=== PATIENT | male | born 1950 | race Caucasian/White ===

== ENCOUNTER 2018-12-01 19:10 | Emergency (ER) | payer OTHER ==
[2018-12-01 19:23] VITALS: BP 127/77; PULSE 82; TEMP 98; BMI 30.9
--- NOTE | 2018-12-01 20:26 | PDOC ---
Documentation entered by Lamont Umanzor SCRIBE, acting as scribe for Perico Coffey MD. Perico Coffey MD: This documentation has been prepared by the Erna briggs Xhesika, SCRIBE, under my direction and personally reviewed by me in its entirety. I confirm that the documentation accurately reflects all work, treatment, procedures, and medical decision making performed by me. History of Present Illness - General Chief Complaint: Pain Stated Complaint: RT HAND PAIN/SWELLING History Source: Patient Exam Limitations: No Limitations - History of Present Illness Initial Comments: 12/01/18 19:31 The patient is a 67 year old male with a significant past medical history of HTN , DM, elevated cholesterol, and chronic constipation (takes Miralax) who presents to the ED with sudden onset of R hand pain and swelling. Patient notes he has been doing recent work/construction around his house that involves his hands. Patient notes his pain has been constant and intermittently radiates up to his forearm. Pt reports he was told by his PCP that he had a fatty liver, and when he saw Dr. Roberson for a routine colonoscopy 1 week ago he had blood work done. Pt is R hand dominant. The patient denies chest pain, shortness of breath, headache and dizziness. Denies fever, chills, cough, nausea, vomiting, diarrhea. Denies dysuria, frequency, urgency and hematuria. Allergies: NKDA Past surgical history: hernia repair, rotated cuff repair. Social history: Social alcohol use. Denies tobacco use. PCP: Dr. Mohamud GI: Dr. Roberson 12/01/18 21:04 Alert and oriented well-developed well-nourished no acute distress cheerful and cooperative Afebrile, vital signs normal HEENT clear Neck supple without bruit mass or nodes Chest clear CV regular without murmur rub or gallop Abdomen benign Extremities: There is mild edema of the right hand, no warmth or erythema. There is tenderness over the dorsum of the wrist, especially the ulnar extensor tendons, and less so the extensor pollicis longus. There is no deformity. Pulses are full. No distal sensory deficits. There is no swelling, edema, pain or tenderness in the forearm, elbow, upper arm, axilla, or shoulder. No axillary or epitrochlear nodes palpable X-ray: Negative Impression: Tendinitis, secondary to overuse. 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 There is no sign of fracture on x-ray, although there is mild to moderate DJD. There is no sign of DVT, and no risk factors Plan: Wrist immobilized in a cock-up splint. Ice, elevation, and Tylenol, with occasional Motrin if the pain becomes worse. Since he is on baby aspirin, overuse of Motrin was discouraged. Referred to orthopedist for follow-up if there is no improvement in 1 week. If symptoms worsen, return to ER for recheck. Fully ambulatory and in no significant pain or other distress at discharge with family to follow-up as directed Past History - Past Medical History Allergies/Adverse Reactions: Allergies Allergy/AdvReac Type Severity Reaction Status Date / Time No Known Allergies Allergy Verified 08/22/11 20:03 Home Medications: Ambulatory Orders Atorvastatin Calcium [Lipitor] 10 mg PO DAILY 08/22/11 Toprol XL 25 mg PO 08/22/11 Aspirin [ASA -] 81 mg PO DAILY 11/21/16 Lisinopril 5 mg PO DAILY 11/21/16 Tamsulosin HCl 0.4 mg PO DAILY 11/21/16 metFORMIN HCL [Metformin HCl ER] 500 mg PO DAILY 11/21/16 COPD: No Diabetes: Yes HTN: Yes Hypercholesterolemia: Yes - Surgical History Abdominal Surgery: Yes (umbilical hernia repair) - Psycho Social/Smoking Cessation Hx Smoking Status: No Smoking History: Never smoked Years of Tobacco Use: 0 Number of Cigarettes Smoked Daily: 0 Review of Systems - Review of Systems Able to Perform ROS?: Yes Comments:: 12/01/18 19:40 GENERAL/CONSTITUTIONAL: No fever or chills. No weakness. HEAD, EYES, EARS, NOSE AND THROAT: No change in vision. No ear pain or discharge. No sore throat. CARDIOVASCULAR: No chest pain or shortness of breath. RESPIRATORY: No cough, wheezing, or hemoptysis. GASTROINTESTINAL: No nausea, vomiting, diarrhea or constipation. GENITOURINARY: No dysuria, frequency, or change in urination. MUSCULOSKELETAL:+ R hand pain and swelling. No neck or back pain. SKIN: No rash NEUROLOGIC: No headache, vertigo, loss of consciousness, or change in strength/ sensation. ENDOCRINE: No increased thirst. No abnormal weight change. HEMATOLOGIC/LYMPHATIC: No anemia, easy bleeding, or history of blood clots. ALLERGIC/IMMUNOLOGIC: No hives or skin allergy. *Physical Exam - Vital Signs Last Vital Signs Temp Pulse Resp BP Pulse Ox 98 F 82 18 127/77 99 12/01/18 19:13 12/01/18 19:13 12/01/18 19:13 12/01/18 19:13 12/01/18 19:13 ED Treatment Course - RADIOLOGY Radiology Studies Ordered: Category Date Time Status WRIST- RIGHT [RAD] Stat Radiology 12/01/18 19:29 Taken Discharge - Discharge Information Problems reviewed: Yes Clinical Impression/Diagnosis: Tendinitis of right wrist Condition: Improved Disposition: HOME - Admission No - Follow up/Referral Referrals: Susana Mohamud MD [Primary Care Provider] - Harvey Mena MD [Staff Physician] - 1 week - Patient Discharge Instructions Patient Printed Discharge Instructions: DI for Tendinitis Additional Instructions: Rest, intermittent ice, elevate, Tylenol as needed. Use splint and sling as directed to keep the wrist immobilized and elevated. If swelling and redness worsen, return immediately. Otherwise follow-up with orthopedic physician assistant in 1 week. Further treatment may be needed. - Post Discharge Activity
== END 2018-12-01 20:26 | disposition home or self-care (01) ==
LOC: FER 19:10
PROC: 2W3CX1Z Immobilization of Right Lower Arm using Splint (ICD-10-PCS; principal; 2018-12-01)
DX: M77.9 Enthesopathy, unspecified (principal); I10 Essential (primary) hypertension; E11.9 Type 2 diabetes mellitus without complications; E78.00 Pure hypercholesterolemia, unspecified; K59.00 Constipation, unspecified; Z79.82 Long term (current) use of aspirin
CPT/HCPCS: 73110-TC-RT-FY; 99282-25

== ENCOUNTER 2022-04-07 15:14 | Emergency (ER) | payer OTHER ==
[2022-04-07 15:34] VITALS: BP 149/95; PULSE 74; RESP 16; TEMP 99; BMI 33.0
== END 2022-04-07 16:26 | disposition home or self-care (01) ==
LOC: FER 15:14
DX: S49.91XA Unspecified injury of right shoulder and upper arm, initial encounter (principal); W07.XXXA Fall from chair, initial encounter
CPT/HCPCS: 73030-TC-RT-FY; 99283-25

== ENCOUNTER 2023-04-07 15:16 | Emergency (ER) | payer OTHER ==
[2023-04-07 15:29] VITALS: BP 150/85; PULSE 86; RESP 16; TEMP 98.7; BMI 31.5
[2023-04-07] MEDS ORDERED: ACETAMINOPHEN 500 MG TABLET (FP) ONE (15:58)
[2023-04-07] MEDS: ACETAMINOPHEN 500 MG TABLET (FP) PO ONE (16:00)
== END 2023-04-07 18:35 | disposition home or self-care (01) ==
LOC: FER 15:16
DX: M54.6 Pain in thoracic spine (principal); R07.81 Pleurodynia; W01.0XXA Fall on same level from slipping, tripping and stumbling without subsequent striking against object, initial encounter
CPT/HCPCS: 70450-TC; 71046-TC-FY; 72125-TC; 72128-TC; 99284-25

== ENCOUNTER 2024-09-13 10:23 | Emergency (ER) | payer OTHER ==
[2024-09-13 10:31] VITALS: BP 148/79; PULSE 88; RESP 18; TEMP 98.2; BMI 30.1
== END 2024-09-13 12:11 | disposition home or self-care (01) ==
LOC: FER 10:23
DX: S92.511A Displaced fracture of proximal phalanx of right lesser toe(s), initial encounter for closed fracture (principal); S92.531A Displaced fracture of distal phalanx of right lesser toe(s), initial encounter for closed fracture; W20.8XXA Other cause of strike by thrown, projected or falling object, initial encounter; Y92.410 Unspecified street and highway as the place of occurrence of the external cause
CPT/HCPCS: 73630-TC-RT-FY; 99283-25